=== PATIENT | female | born 1980 | race Caucasian/White ===

== ENCOUNTER 2023-09-12 12:12 | Emergency (ER) | payer OTHER ==
[2023-09-12] MEDS: KETOROLAC 15 MG/ML 1 ML VIAL IM STA (12:32)
--- NOTE | 2023-09-12 12:33 | ED ---
Lower Extremity Injury HPI - General Chief Complaint: Extremity Injury, Lower Stated Complaint: IHS-L Leg Injury Time Seen by Provider: 09/12/23 12:25 Source: patient Mode of arrival: ambulatory Limitations: no limitations - History of Present Illness Initial Comments: 42-year-old male presents emergency department chief complaint of left leg pain. 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 Patient denies falling, rolling her ankle, twisting her knee or hip. Denies numbness or tingling to the left lower extremity states that she experiences some tenderness while ambulating. denies any obvious deformity. - Related Data Allergies Allergy/AdvReac Type Severity Reaction Status Date / Time cephalexin [From Keflex] Allergy Swelling Verified 09/12/23 12:16 Review of Systems ROS Statement: Those systems with pertinent positive or pertinent negative responses have been documented in the HPI. ROS Other: All systems not noted in ROS Statement are negative. Past Medical History Past Medical History: No Reported History Past Surgical History: Tonsillectomy Smoking Status: Current every day smoker Past Alcohol Use History: None Reported Past Drug Use History: None Reported General Exam Limitations: no limitations General appearance: alert, in no apparent distress Head exam: Present: atraumatic, normocephalic, normal inspection Eye exam: Present: normal appearance, PERRL, EOMI. Absent: scleral icterus, conjunctival injection, periorbital swelling ENT exam: Present: normal exam, mucous membranes moist Neck exam: Present: normal inspection. Absent: tenderness, meningismus, lymphadenopathy Respiratory exam: Present: normal lung sounds bilaterally. Absent: respiratory distress, wheezes, rales, rhonchi, stridor Cardiovascular Exam: Present: regular rate, normal rhythm, normal heart sounds. Absent: systolic murmur, diastolic murmur, rubs, gallop, clicks GI/Abdominal exam: Present: soft, normal bowel sounds. Absent: distended, tenderness, guarding, rebound, rigid Left Hip exam: Present: normal inspection, full ROM, tenderness Upper Leg exam: Present: normal inspection Knee exam: Present: normal inspection, full ROM. Absent: tenderness, swelling, abrasion Lower Leg exam: Present: normal inspection, full ROM, tenderness (lateral). Absent: ecchymosis, deformity Ankle exam: Present: normal inspection, full ROM. Absent: tenderness, swelling Neurovascular tendon exam: Present: no vascular compromise. Absent: pulse deficit, abnormal cap refill Back exam: Present: normal inspection Neurological exam: Present: alert, oriented X3, CN II-XII intact Psychiatric exam: Present: normal affect, normal mood Skin exam: Present: warm, dry, intact, normal color. Absent: rash Course Vital Signs 09/12/23 12:13 Temperature 99.3 F Pulse Rate 88 Respiratory 18 Rate Blood Pressure 135/83 O2 Sat by Pulse 96 Oximetry Medical Decision Making - Medical Decision Making Was pt. sent in by a medical professional or institution (, PA, POWER GENERATION TECHNICIAN, urgent care, hospital, or halfway...) When possible be specific @ -No Did you speak to anyone other than the patient for history (EMS, parent, family, police, friend...)? What history was obtained from this source @ -No Did you review nursing and triage notes (agree or disagree)? Why? @ -I reviewed and agree with nursing and triage notes Were old charts reviewed (outside hosp., previous admission, EMS record, old EKG, old radiological studies, urgent care reports/EKG's, halfway records)? Report findings @ -No old charts were reviewed Differential Diagnosis (chest pain, altered mental status, abdominal pain women, abdominal pain men, vaginal bleeding, weakness, fever, dyspnea, syncope, headache, dizziness, GI bleed, back pain, seizure, CVA, palpatations, mental health, musculoskeletal)? @ -Differential Musculoskeletal Muscular strain, contusion, ligament sprain, fracture, arthritis, septic arthritis, bursitis, cellulitis, muscle spasm, nerve compression, DVT, arterial occlusion, herpes zoster, electrolyte abnormality, tumor.... This is not meant to be in all inclusive list EKG interpreted by me (3pts min.). @ -None X-rays interpreted by me (1pt min.). @ -None done CT interpreted by me (1pt min.). @ -None done U/S interpreted by me (1pt. min.). @ -None done What testing was considered but not performed or refused? (CT, X-rays, U/S, labs)? Why? @ -None What meds were considered but not given or refused? Why? @ -None Did you discuss the management of the patient with other professionals (professionals i.e. , PA, POWER GENERATION TECHNICIAN, lab, RT, psych nurse, social media specialist, director experimental medicine, teacher, tank officer, counter caser)? Give summary @ -No Was smoking cessation discussed for >3mins.? @ -No Was critical care preformed (if so, how long)? @ -No Were there social determinants of health that impacted care today? How? (Homelessness, low income, unemployed, alcoholism, drug addiction, transportation, low edu. Level, literacy, decrease access to med. care, usp, rehab)? @ -No Was there de-escalation of care discussed even if they declined (Discuss DNR or withdrawal of care, Hospice)? DNR status @ -No What co-morbidities impacted this encounter? (DM, HTN, Smoking, COPD, CAD, Cancer, CVA, ARF, Chemo, Hep., AIDS, mental health diagnosis, sleep apnea, morbid obesity)? @ -None Was patient admitted / discharged? Hospital course, mention meds given and route, prescriptions, significant lab abnormalities, going to OR and other pertinent info. @ -Discharged. 42-year-old female chief complaint of left calf pain. Physical exam patient denies any bony tenderness over the ankle, metatarsals, knee joint and hip joint. Asked with patient that injury is likely soft tissue and tendinous in nature, and x-ray would be unhelpful in revealing any bony pathology to patient's injury and due to no complaint of bony tenderness over fibula or tibia. Patient given shot of Toradol with symptomatic relief. Donny wrap placed on patient's leg. Instructed to keep it elevated, ice affected leg, rest and continue use of NSAIDs at home for symptomatic relief. Patient given orthopedic follow-up if symptoms persist or worsen over the next 7 to 10 days. Provided with referral for orthopedics for further evaluation and treatment. Undiagnosed new problem with uncertain prognosis? @ -No Drug Therapy requiring intensive monitoring for toxicity (Heparin, Nitro, Insulin, Cardizem)? @ -No Were any procedures done? @ -No Diagnosis/symptom? @ -muscle strain Acute, or Chronic, or Acute on Chronic? @ -Acute Uncomplicated (without systemic symptoms) or Complicated (systemic symptoms)? @ -Uncomplicated Side effects of treatment? @ -No Exacerbation, Progression, or Severe Exacerbation? @ -No Poses a threat to life or bodily function? How? (Chest pain, [place], [place], pneumonia, PE, COPD, DKA, ARF, appy, cholecystitis, CVA, Diverticulitis, Homicidal, Suicidal, threat to staff... and all critical care pts) @ -No Disposition Clinical Impression: Muscle strain Narrative: Please return to the Emergency Department if symptoms worsen or any other concerns. Schedule follow-up appointment with provided orthopedic referral for further evaluation and treatment over the next 1-2 weeks. Disposition: HOME SELF-CARE Condition: Good Instructions (If sedation given, give patient instructions): Muscle Strain (ED) Is patient prescribed a controlled substance at d/c from ED?: No Referrals: Thea Wiley DO [Primary Care Provider] - 1-2 days Adair Benson DO [Doctor of Osteopathic Medicine] - 1-2 days Time of Disposition: 13:38
[2023-09-12 13:09] VITALS: RESP 18
[2023-09-12 14:20] VITALS: BP 136/80; PULSE 76; TEMP 98.1
== END 2023-09-12 13:47 | disposition home or self-care (01) ==
LOC: EC 12:12
DX: S86.912A Strain of unspecified muscle(s) and tendon(s) at lower leg level, left leg, initial encounter (principal); F17.200 Nicotine dependence, unspecified, uncomplicated; Z88.1 Allergy status to other antibiotic agents; X50.0XXA Overexertion from strenuous movement or load, initial encounter
CPT/HCPCS: 99283; 96372; J1885

== ENCOUNTER → 2023-09-15 | Outpatient (CLI) | payer OTHER ==
--- NOTE | 2023-09-15 12:09 | XR ---
EXAMINATION TYPE: XR tibia fibula LT DATE OF EXAM: 09/15/2023 12:01 PM CLINICAL INDICATION:Female, 42 years old with history of S86.112A L posterior calf pain; [facility] COMPARISON: None TECHNIQUE: XR tibia fibula LT; tibia/fibula was examined in AP and lateral projections. FINDINGS: No evidence of any acute osseous pathology, joint dislocation, or soft tissue swelling is n oted. Calcaneal plantar spurring. IMPRESSION: No evidence of acute fracture.
--- NOTE | 2023-09-15 12:53 | US ---
EXAMINATION TYPE: US venous doppler duplex LE LT DATE OF EXAM: 09/15/2023 12:38 PM COMPARISON: NONE CLINICAL INDICATION: Female, 42 years old with history of [id number], [id number]; No hx of DVT. Patient does not take blood thinners. Patient injured calf on Friday. SIDE PERFORMED: Left TECHNIQUE: The lower extremity deep venous system is examined utilizing real time linear array sonog toño with graded compression, doppler sonography and color-flow sonography. VESSELS IMAGED: Common Femoral Vein Deep Femoral Vein Greater Saphenous Vein * Femoral Vein Popliteal Vein Small Saphenous Vein * Proximal Calf Veins (* superficial vessels) Left Leg: No evidence of DVT. IMPRESSION: No evidence of DVT.
== END | disposition home or self-care (01) ==
LOC: RADUSWWP 11:41
PROVIDERS: ATTEND Emergency Medicine
DX: S86.112A Strain of other muscle(s) and tendon(s) of posterior muscle group at lower leg level, left leg, initial encounter (principal); M79.662 Pain in left lower leg